=== PATIENT | female | born 1995 | race American Indian/Alaskan Native ===

== ENCOUNTER 2020-08-04 21:38 | Emergency (ER) | payer OTHER ==
[2020-08-04 22:29] VITALS: BP 101/55
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
== END 2020-08-04 23:53 | disposition left against medical advice (07) ==
LOC: ED 21:38
DX: Z04.1 Encounter for examination and observation following transport accident (principal); Z53.21 Procedure and treatment not carried out due to patient leaving prior to being seen by health care provider

== ENCOUNTER 2020-11-28 10:23 | Emergency (ER) | payer MEDICAID, OTHER | END 2020-11-28 10:30 | disposition left against medical advice (07) | LOC: ED 10:23 | DX: R42 Dizziness and giddiness (principal); Z53.21 Procedure and treatment not carried out due to patient leaving prior to being seen by health care provider ==